=== PATIENT | female | born 1985 | race Caucasian/White ===

== ENCOUNTER 2019-06-05 15:36 | Emergency (ER) | payer BC, OTHER ==
--- NOTE | 2019-06-05 18:07 | EDM.PDOC ---
ED HPI GENERAL MEDICAL PROBLEM - General Chief Complaint: Neurological Problem Stated Complaint: DIZZY/WEAK Time Seen by Provider: 06/05/19 16:09 Source of Information: Reports: Patient History Limitations: Reports: No Limitations - History of Present Illness INITIAL COMMENTS - FREE TEXT/NARRATIVE: The patient presents with generalized weakness, nausea, dizziness. She feels like everything is spinning at times. She also has a fever and sore throat. She has no chest pain, cough or shortness of breath. She has some upper abdominal pain but no dysuria. She did get the flu shot this year. She has generalized body aches. This all started today at 10pm. Onset: Gradual Duration: Hour(s): Location: Reports: Generalized Quality: Reports: Sharp Severity: Moderate Improves with: Reports: None Worsens with: Reports: None Associated Symptoms: Reports: Cough, Fever/Chills, Nausea/Vomiting. Denies: Chest Pain, Headaches, Shortness of Breath Generalized Pain Score (Numeric/FACES): 7 - Related Data Allergies Allergy/AdvReac Type Severity Reaction Status Date / Time omeprazole [From Prilosec] Allergy Hives Verified 04/04/18 15:56 topiramate [From Topamax] Allergy Pain Verified 04/04/18 15:56 Home Meds: Home Meds DULoxetine [Cymbalta] 60 mg PO DAILY 04/04/18 [History] Meclizine [Antivert] 25 mg PO TID PRN #30 tab 06/05/19 [Rx] Ondansetron [Zofran ODT] 4 mg PO Q6H PRN #20 tab.dis 06/05/19 [Rx] Past Medical History Cardiovascular History: Reports: Other (See Below) Other Cardiovascular History: 1 degree AV block [employer] History: Reports: Ectopic Musculoskeletal History: Reports: Other (See Below) Other Musculoskeletal History: myoclonic dystrophy Neurological History: Reports: Migraines Psychiatric History: Reports: Depression - Past Surgical History HEENT Surgical History: Reports: Adenoidectomy, Tonsillectomy Female Surgical History: Reports: Section Social & Family History - Family History Family Medical History: Noncontributory - Tobacco Use Smoking Status *Q: Never Smoker - Caffeine Use Caffeine Use: Reports: Coffee, Soda - Recreational Drug Use Recreational Drug Type: Reports: Marijuana/Hashish Other Recreational Drug Type: last used 4 yrs ago to help with sleep ED ROS GENERAL - Review of Systems Review Of Systems: See Below Constitutional: Reports: Fever, Chills, Malaise, Weakness, Fatigue HEENT: Reports: Throat Pain Respiratory: Reports: No Symptoms Cardiovascular: Reports: No Symptoms Endocrine: Reports: No Symptoms GI/Abdominal: Reports: Abdominal Pain, Nausea. Denies: Vomiting : Reports: No Symptoms Musculoskeletal: Reports: Muscle Pain Skin: Reports: No Symptoms ED EXAM, NEURO - Physical Exam Exam: See Below Exam Limited By: No Limitations General Appearance: Alert, No Apparent Distress Ears: Normal External Exam Nose: Normal Inspection Head Exam: Atraumatic, Normocephalic Neck: Normal Inspection Respiratory/Chest: No Respiratory Distress, Lungs Clear, Normal Breath Sounds Cardiovascular: Regular Rate, Rhythm, No Edema, No Murmur GI/Abdominal: Soft, Non-Tender, No Organomegaly, No Mass Neurological: Alert, No Motor/Sensory Deficits, Oriented x 3 Course - Vital Signs Last Recorded V/S: Last Vital Signs Temp 98.0 F 06/05/19 15:51 Pulse 71 06/05/19 15:51 Resp 20 06/05/19 15:51 BP 100/67 06/05/19 15:51 Pulse Ox 95 06/05/19 15:51 - Orders/Labs/Meds Orders: Active Orders 24 hr Category Date Time Status Chest 2V [CR] Stat Exams 06/05/19 16:50 Taken CULTURE STREP A CONFIRMATION [] Stat Lab 06/05/19 16:52 Results INFLUENZA A+B AG SCREEN [] Stat Lab 06/05/19 16:52 Received STREP SCRN A RAPID W CULT CONF [] Stat Lab 06/05/19 16:52 Results Labs: Laboratory Tests 06/05/19 06/05/19 06/05/19 Range/Units 16:50 17:06 17:06 WBC 5.26 (3.98-10.04) K/mm3 RBC 4.54 (3.98-5.22) M/mm3 Hgb 14.4 D (11.2-15.7) gm/dl Hct 41.1 (34.1-44.9) % MCV 90.5 (79.4-94.8) fl MCH 31.7 (25.6-32.2) pg MCHC 35.0 (32.2-35.5) g/dl RDW Std Deviation 40.5 (36.4-46.3) fL Plt Count 181 L (182-369) K/mm3 MPV 9.2 L (9.4-12.3) fl Neut % (Auto) 56.9 (34.0-71.1) % Lymph % (Auto) 30.2 (19.3-51.7) % Schley % (Auto) 7.4 (4.7-12.5) % Eos % (Auto) 3.8 (0.7-5.8) Baso % (Auto) 1.7 H (0.1-1.2) % Neut # (Auto) 2.99 (1.56-6.13) K/mm3 Lymph # (Auto) 1.59 (1.18-3.74) K/mm3 Schley # (Auto) 0.39 H (0.24-0.36) K/mm3 Eos # (Auto) 0.20 (0.04-0.36) K/mm3 Baso # (Auto) 0.09 H (0.01-0.08) K/mm3 Sodium 144 (136-145) mEq/L Potassium 3.6 (3.5-5.1) mEq/L Chloride 108 H (98-107) mEq/L Carbon Dioxide 29 (21-32) mEq/L Anion Gap 10.6 (5-15) BUN 10 (7-18) mg/dL Creatinine 0.7 (0.55-1.02) mg/dL Est Cr Clr Drug Dosing 103.82 mL/min Estimated GFR (MDRD) > 60 (>60) mL/min BUN/Creatinine Ratio 14.3 (14-18) Glucose 91 (74-106) mg/dL Calcium 8.9 (8.5-10.1) mg/dL Total Bilirubin 0.3 (0.2-1.0) mg/dL AST 18 (15-37) U/L ALT 28 (14-59) U/L Alkaline Phosphatase 47 (46-116) U/L Total Protein 6.1 L (6.4-8.2) g/dl Albumin 3.3 L (3.4-5.0) g/dl Globulin 2.8 gm/dL Albumin/Globulin Ratio 1.2 (1-2) HCG, Qual (NEGATIVE) Urine Color Yellow (Yellow) Urine Appearance Clear (Clear) Urine pH 7.0 (5.0-8.0) Ur Specific [place] 1.025 (1.005-1.030) Urine Protein Negative (Negative) Urine Glucose (UA) Negative (Negative) Urine Ketones Negative (Negative) Urine Occult Blood Negative (Negative) Urine Nitrite Negative (Negative) Urine Bilirubin Negative (Negative) Urine Urobilinogen 0.2 (0.2-1.0) Ur Leukocyte Esterase Negative (Negative) Urine RBC 0-5 (0-5) /hpf Urine WBC 5-10 H (0-5) /hpf Ur Squamous Epith Cells 5-10 H (0-5) /hpf Urine Bacteria Few (FEW) /hpf Urine Mucus Few (FEW) /hpf Monoscreen (NEGATIVE) 06/05/19 Range/Units 17:06 WBC (3.98-10.04) K/mm3 RBC (3.98-5.22) M/mm3 Hgb (11.2-15.7) gm/dl Hct (34.1-44.9) % MCV (79.4-94.8) fl MCH (25.6-32.2) pg MCHC (32.2-35.5) g/dl RDW Std Deviation (36.4-46.3) fL Plt Count (182-369) K/mm3 MPV (9.4-12.3) fl Neut % (Auto) (34.0-71.1) % Lymph % (Auto) (19.3-51.7) % Schley % (Auto) (4.7-12.5) % Eos % (Auto) (0.7-5.8) Baso % (Auto) (0.1-1.2) % Neut # (Auto) (1.56-6.13) K/mm3 Lymph # (Auto) (1.18-3.74) K/mm3 Schley # (Auto) (0.24-0.36) K/mm3 Eos # (Auto) (0.04-0.36) K/mm3 Baso # (Auto) (0.01-0.08) K/mm3 Sodium (136-145) mEq/L Potassium (3.5-5.1) mEq/L Chloride (98-107) mEq/L Carbon Dioxide (21-32) mEq/L Anion Gap (5-15) BUN (7-18) mg/dL Creatinine (0.55-1.02) mg/dL Est Cr Clr Drug Dosing mL/min Estimated GFR (MDRD) (>60) mL/min BUN/Creatinine Ratio (14-18) Glucose (74-106) mg/dL Calcium (8.5-10.1) mg/dL Total Bilirubin (0.2-1.0) mg/dL AST (15-37) U/L ALT (14-59) U/L Alkaline Phosphatase (46-116) U/L Total Protein (6.4-8.2) g/dl Albumin (3.4-5.0) g/dl Globulin gm/dL Albumin/Globulin Ratio (1-2) HCG, Qual Negative (NEGATIVE) Urine Color (Yellow) Urine Appearance (Clear) Urine pH (5.0-8.0) Ur Specific [place] (1.005-1.030) Urine Protein (Negative) Urine Glucose (UA) (Negative) Urine Ketones (Negative) Urine Occult Blood (Negative) Urine Nitrite (Negative) Urine Bilirubin (Negative) Urine Urobilinogen (0.2-1.0) Ur Leukocyte Esterase (Negative) Urine RBC (0-5) /hpf Urine WBC (0-5) /hpf Ur Squamous Epith Cells (0-5) /hpf Urine Bacteria (FEW) /hpf Urine Mucus (FEW) /hpf Monoscreen Negative (NEGATIVE) - Re-Assessments/Exams Free Text/Narrative Re-Assessment/Exam: 06/05/19 18:10 I ordered labs, CXR, UA, influenza and strep. I also ordered some zofran. 06/05/19 18:11 Her CBC and CMP look good. Her HCG is negative. Her UA shows no UTI. Her monoscreen is negative. Her strep is negative. 06/05/19 18:34 Her influenza is negative. I feel she has a viral URI, vertigo and nausea. I will give her some antivert for the dizzine Departure - Departure Time of Disposition: 18:40 Disposition: Home, Self-Care 01 Condition: Good Clinical Impression: Dizziness, Viral URI, Nausea - Discharge Information *PRESCRIPTION DRUG MONITORING PROGRAM REVIEWED*: Not Applicable *COPY OF PRESCRIPTION DRUG MONITORING REPORT IN PATIENT SURI: Not Applicable Prescriptions: Meclizine [Antivert] 25 mg PO TID PRN #30 tab PRN Reason: Dizziness Ondansetron [Zofran ODT] 4 mg PO Q6H PRN #20 tab.dis PRN Reason: Nausea\vomiting Referrals: Ethel Tejada PA-C [Primary Care Provider] - 1 Week Forms: ED Department Discharge Additional Instructions: Drink plenty of fluids. Take the antivert as needed for dizziness. Take the zofran as needed for nasuea. Take tylenol or motrin for any fever or pain. Please return if you are worse. Sepsis Event Note - Evaluation Sepsis Screening Result: No Definite Risk - Focused Exam Vital Signs: Vital Signs Temp Pulse Resp BP Pulse Ox 06/05/19 15:51 98.0 F 71 20 100/67 95 Date Exam was Performed: 06/05/19 Time Exam was Performed: 18:37 - My Orders Last 24 Hours: My Active Orders 06/05/19 16:50 Chest 2V [CR] Stat 06/05/19 16:52 CULTURE STREP A CONFIRMATION [RM] Stat INFLUENZA A+B AG SCREEN [] Stat STREP SCRN A RAPID W CULT CONF [] Stat - Assessment/Plan Last 24 Hours: My Active Orders 06/05/19 16:50 Chest 2V [CR] Stat 06/05/19 16:52 CULTURE STREP A CONFIRMATION [RM] Stat INFLUENZA A+B AG SCREEN [] Stat STREP SCRN A RAPID W CULT CONF [] Stat
--- NOTE | 2019-06-05 18:56 | CR ---
Chest: 2 views of the chest were obtained. Comparison: Previous chest x-ray of 04/04/18. Heart size and mediastinum are normal. Minimal discoid atelectasis is noted within the left base. Lungs otherwise are clear. Bony structures are unremarkable. Surgical clips are seen within the upper abdomen from previous cholecystectomy. Impression: 1. Minimal left basilar discoid atelectasis. 2. Nothing acute is appreciated on 2 view chest x-ray. Diagnostic code #2 This report was dictated in [place] Standard Time
== END 2019-06-05 18:53 | disposition home or self-care (01) ==
LOC: JD.ED 15:36
DX: J06.9 Acute upper respiratory infection, unspecified (principal); R42 Dizziness and giddiness; Z88.8 Allergy status to other drugs, medicaments and biological substances
CPT/HCPCS: 36415; 71046; 71046-26; 80053; 81001; 84703; 85025; 86308; 87081; 87430; 87804; 99283; 99285-25

== ENCOUNTER 2021-11-12 10:17 | Inpatient (IN) | payer BC, OTHER ==
[2021-11-12] MEDS ORDERED: Sodium Chloride 0.9% 10 ML Syringe FLUSH PRN ×2 (11:18→11:22)
[2021-11-12] MEDS ORDERED: Ondansetron 4 MG/2 ML SDV IVPUSH ONE (11:19)
[2021-11-12] MEDS ORDERED: Sodium Chloride 0.9% 1,000 ML IV ONE ×2 (11:19→13:41)
[2021-11-12] MEDS ORDERED: Iopamidol 612 MG/ML 100 ML Bottle IVPUSH ONE (11:22)
[2021-11-12] MEDS ORDERED: HYDROmorphone 0.5 MG/0.5 ML Syringe IVPUSH ONE (12:20)
[2021-11-12] MEDS ORDERED: Lidocaine 2% Viscous Solution 15 ML UD PO ONE (13:43)
[2021-11-12] MEDS: Potassium Chloride 10 MEQ in Premix Bag 1 BAG IV SCH ×4 (13:59→20:27)
[2021-11-12] MEDS ORDERED: Acetaminophen 325 MG Tab PO PRN (14:00)
[2021-11-12] MEDS ORDERED: Benzocaine 20% Oral Spray 59.2 ML Canister MUCMEM PRN (14:07)
[2021-11-12] MEDS: HYDROmorphone 0.5 MG/0.5 ML Syringe IVPUSH PRN ×4 (14:33→22:23)
[2021-11-12] MEDS: Benzocaine 20% Topical Spray UD MUCMEM PRN ×2 (15:05→16:28)
[2021-11-12] MEDS: buPROPion 150 MG Tab.ER PO SCH (20:28)
[2021-11-12] MEDS: DULoxetine 30 MG Cap PO SCH (20:28)
[2021-11-12] MEDS: Dextrose 5%-0.9% NaCl 1,000 ML IV SCH (22:39)
[2021-11-13] MEDS: Ondansetron 4 MG/2 ML SDV IV PRN ×2 (00:14→05:56)
[2021-11-13] MEDS: Dextrose 5%-0.9% NaCl 1,000 ML IV SCH ×2 (03:01→07:25)
[2021-11-13] MEDS: HYDROmorphone 0.5 MG/0.5 ML Syringe IVPUSH PRN ×3 (03:01→08:13)
[2021-11-13] MEDS: Potassium Chloride 10 MEQ in Premix Bag 1 BAG IV SCH ×4 (08:16→13:25)
[2021-11-13] MEDS ORDERED: Benzocaine/Cetylpyridinium/Menthol Lozenge MUCMEM PRN (08:30)
[2021-11-13] MEDS ORDERED: HYDROmorphone 0.5 MG/0.5 ML Syringe IVPUSH PRN (08:30)
[2021-11-13] MEDS: Dextrose 5%-Lact Ringers w/KCl 1,000 ML IV SCH (13:25)
[2021-11-13] MEDS: buPROPion 150 MG Tab.ER PO SCH (21:11)
[2021-11-13] MEDS: DULoxetine 30 MG Cap PO SCH (21:11)
[2021-11-14] MEDS: Dextrose 5%-Lact Ringers w/KCl 1,000 ML IV SCH (03:53)
[2021-11-14] MEDS ORDERED: Dextrose 5%-Lact Ringers w/KCl 1,000 ML IV SCH (07:45)
[2021-11-14] MEDS: DULoxetine 30 MG Cap PO SCH (20:33)
[2021-11-14] MEDS: buPROPion 150 MG Tab.ER PO SCH (20:33)
== END 2021-11-15 10:19 | disposition home or self-care (01) | DRG 247 ==
LOC: JD.ED 10:17 → JD.MS 14:01
PROVIDERS: ADMIT Internal Medicine; ATTEND Internal Medicine
PROC: 0DH67UZ Insertion of Feeding Device into Stomach, Via Natural or Artificial Opening (ICD-10-PCS; principal; 2021-11-12)
DX: K56.609 Unspecified intestinal obstruction, unspecified as to partial versus complete obstruction (principal); R53.1 Weakness; E87.6 Hypokalemia; G71.11 Myotonic muscular dystrophy; G43.909 Migraine, unspecified, not intractable, without status migrainosus; F32.89 Other specified depressive episodes; Z91.018 Allergy to other foods; Z87.891 Personal history of nicotine dependence; Z86.16 Personal history of COVID-19; Z98.891 History of uterine scar from previous surgery; Z90.49 Acquired absence of other specified parts of digestive tract; Z88.8 Allergy status to other drugs, medicaments and biological substances
CPT/HCPCS: 36415; 74018; 74018-26; 74177; 74177-26; 80053; 81003; 81025; 83605; 83690; 83735; 85025; 86140; 97116-GP; 97161-GP; A9270-GY; J1170; J2405; J3480; J3490; J7030; J7042; Q9967